=== PATIENT | male | born 1985 | race Caucasian/White ===

== ENCOUNTER 2018-03-30 22:05 | Inpatient (IN) | payer SELFPAY ==
[~2018-03-30] VITALS: Ht 182.9 cm; Wt 95.0 kg
[2018-03-30 22:14] VITALS: BP 169/64; PULSE 74; RESP 16; TEMP 98.2; O2SAT 99
[2018-03-30] MEDS ORDERED: SODIUM CHLOR 0.9% 1000 ML INJ 1,000 ML IV ONE (22:15)
[2018-03-30] MEDS ORDERED: ceFAZolin 2 GM PREMIX 50 ML IV ONE (22:15)
[2018-03-30] MEDS ORDERED: DIPHTH/TETANUS/ACEL PERTUSSIS (BOOSTER) 0.5 ML VIAL/PFS IM ONE (22:15)
[2018-03-30] MEDS ORDERED: LORazepam 2 MG/ML VIAL IV PUSH ONE (22:30)
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
--- NOTE | 2018-03-30 23:04 | RADRPT ---
EXAM DATE: 03/30/2018 10:56 PM EDT AGE/SEX: 32 years / Male INDICATIONS: Short of breath. CLINICAL DATA: This is the patient's initial encounter. Patient reports that signs and symptoms have been present for 1 day and indicates a pain score of Nonresponsive. MEDICAL/SURGICAL HISTORY: Non-responsive. Non-responsive. COMPARISON: No prior exams available for comparison. FINDINGS: A single AP view of the chest demonstrates the lungs to be symmetrically aerated without evidence of mass, infiltrate or effusion. The cardiomediastinal contours are unremarkable. Osseous structures a re intact. CONCLUSION: No acute cardiopulmonary process. Electronically signed by: Enrique Petersen MD 03/30/2018 11:03 PM EDT
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
[2018-03-30 23:21] LABS: AUTOMATED NEUTROPHIL # 24.6 TH/MM3 (1.8-7.7); BASOPHIL # 0.1 TH/MM3 (0-0.2); BASOPHIL % 0.4 % (0.0-2.0); HEMATOCRIT 51.7 % (39.0-51.0); HEMOGLOBIN 17.3 GM/DL (13.0-17.0); LYMPH % 2.7 % (9.0-44.0); LYMPHOCYTE # 0.7 TH/MM3 (1.0-4.8); MEAN CELL VOLUME 96.4 FL (80.0-100.0); MEAN CORPUSCULAR HEMOGLOBIN 32.3 PG (27.0-34.0); MEAN CORPUSCULAR HGB CONC 33.5 % (32.0-36.0); MEAN PLATELET VOLUME 10.1 FL (7.0-11.0); MONO % 2.5 % (0.0-8.0); MONOCYTE # 0.6 TH/MM3 (0-0.9); NEUT % 94.4 % (16.0-70.0); PLATELET COUNT 390 TH/MM3 (150-450); RED BLOOD COUNT 5.36 MIL/MM3 (4.50-5.90); RED CELL DISTRIBUTION WIDTH 13.1 % (11.6-17.2)
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
[2018-03-30 23:30] LABS: PROTHROMBIN TIME - PATIENT 10.4 SEC (9.8-11.6)
[2018-03-30] MEDS ORDERED: PROPOFOL 200 MG/20 ML AMP IV ONE (23:30)
[2018-03-31] VITALS (8 sets, daily range): BP systolic 118–145; BP diastolic 64–83; PULSE 64–86; RESP 14–22; TEMP 97.7–98.4; O2SAT 94–100
[2018-03-31] MEDS ORDERED: MIDAZOLAM HCL 5 MG/ML VIAL (1 ML) ONE (00:25)
[2018-03-31 01:28] LABS: ALKALINE PHOSPHATASE 89 U/L (45-117); ALT (GPT) 27 U/L (12-78); TOTAL BILIRUBIN ADULT 0.6 MG/DL (0.2-1.0); TOTAL PROTEIN 7.4 GM/DL (6.4-8.2); TROPONIN I LESS THAN 0.02 NG/ML (0.02-0.05)
[2018-03-31 01:43] LABS: ALBUMIN 4.1 GM/DL (3.4-5.0); AST (GOT) 16 U/L (15-37); BICARBONATE 23.2 MEQ/L (21.0-32.0); BLOOD UREA NITROGEN 14 MG/DL (7-18); CALCIUM 8.6 MG/DL (8.5-10.1); CHLORIDE 108 MEQ/L (98-107); CREATININE 1.13 MG/DL (0.60-1.30); GLOMERULAR FILTRATION RATE 75 ML/MIN (>89); GLUCOSE,RANDOM 120 MG/DL (74-106); MAGNESIUM 2.3 MG/DL (1.5-2.5); SODIUM (NA) 142 MEQ/L (136-145)
[2018-03-31 01:44] LABS: ACETAMINOPHEN LESS THAN 2.0 MCG/ML (10.0-30.0)
[2018-03-31] MEDS ORDERED: SODIUM CHLOR 0.9% 1000 ML INJ 1,000 ML IV SCH (02:15)
[2018-03-31] MEDS ORDERED: MIDAZOLAM HCL 5 MG/5 ML VIAL IV PUSH ONE (02:15)
[2018-03-31] MEDS ORDERED: PROPOFOL 200 MG/20 ML AMP IV ONE ×2 (02:15→12:00)
[2018-03-31] MEDS ORDERED: NALOXONE HCL 0.4 MG/ML AMP IV PUSH PRN (03:00)
[2018-03-31] MEDS ORDERED: SODIUM CHLORIDE 0.9% FLUSH 10 ML FLUSH IV FLUSH PRN (03:00)
[2018-03-31] MEDS ORDERED: LACTULOSE SYRUP 20 GM/30 ML CUP PO PRN (03:00)
[2018-03-31] MEDS ORDERED: MAGNESIUM HYDROXIDE SUSP 30 ML CUP PO PRN (03:00)
[2018-03-31] MEDS ORDERED: ACETAMINOPHEN 325 MG TAB PO PRN (03:00)
[2018-03-31] MEDS ORDERED: SENNOSIDES 8.6 MG TAB PO PRN (03:00)
[2018-03-31] MEDS ORDERED: ONDANSETRON ODT 4 MG TAB PO PRN (03:00)
[2018-03-31] MEDS ORDERED: MORPHINE SULFATE 4 MG/ML INJ IV PUSH PRN (03:00)
[2018-03-31] MEDS ORDERED: BISACODYL 10 MG SUPP RECTAL PRN (03:00)
[2018-03-31] MEDS: SODIUM CHLOR 0.9% 1000 ML INJ 1,000 ML IV SCH ×3 (03:03→20:42)
[2018-03-31 05:35] LABS: BILIRUBIN, URINE NEG (NEG); BLOOD, URINE SMALL (NEG); GLUCOSE,URINE NEG (NEG); HYALINE CAST, URINE 13 /lpf (RARE); KETONE, URINE NEG (NEG); MUCUS URINE MOD /lpf (OCC); NITRITE,URINE NEG (NEG); SQUAMOUS EPITHELIAL CELL URINE 6 /hpf (0-5); URINE COLOR YELLOW (YELLW/STRAW); URINE LEUKOCYTE ESTERASE LARGE (NEG)
[2018-03-31] MEDS ORDERED: CHLORHEXIDINE GLUCONATE 0.12% 15 ML CUP ONE (08:26)
[2018-03-31] MEDS: SODIUM CHLORIDE 0.9% FLUSH 10 ML FLUSH IV FLUSH SCH ×2 (08:31→20:42)
[2018-03-31] MEDS: DOCUSATE SODIUM 50 MG/SENNA 8.6 MG TAB PO SCH ×2 (08:31→20:42)
[2018-03-31] MEDS ORDERED: ACETAMINOPHEN 1000 MG/100 ML 100 ML IV ONE (08:35)
--- NOTE | 2018-03-31 08:44 | HHI.HP ---
HPI Service [facility] Hospitalists Primary Care Physician No Primary Care Physician Admission Diagnosis AMS, Facial trauma with jaw dislocation Diagnoses: Chief Complaint: unable to close his mouth Travel History International Travel<30 Days: No Contact w/Intl Traveler <30 Da: No Traveled to Known Affected Are: No History of Present Illness The patient is a 32 year old male who presents to the [facility] emergency department with a history of altered mentation noted by his family prior to his arrival in the emergency department. According to ambulance services, the patient was last seen normal by his family asked the patient arrived in the area yesterday to visit his family. The patient's family reported to ambulance services that they heard loud noises, banging, moaning in the room that the patient was staying in. They then heard a loud thump that sounded like the patient fell to the floor, they then went to check on him. Patient was noted to be on the ground. The patient was noted to be altered. The patient was brought in by ambulance services for evaluation and treatment. The patient reportedly has a history of using marrow being aware of him using any other drugs. They report that he has no past medical history and no known drug allergies. He does not take any prescribed medications. The patient himself is unable to provide any significant history. He is following commands and will state his name, however he has visible jaw deformity and inability to close his mouth, therefore history from the patient is limited. The patient denies having any pain at this time, except with palpating the jaw. On the patient's mother's arrival the patient's mother was able to provide additional history. She reports that the patient was with her fianc throughout the day. He had reported not feeling well and having nausea and vomiting. When she returned home from work she noticed that he had bruising underneath bilateral eyes. She asked him what happened and he could not recall. She reports that he took ibuprofen and then went to bed. When she went to check on him again he was able to be awakened, however he rolled off of an air mattress on the floor and then began to have what looked like generalized tonic-clonic seizure activity. She reports ambulance services were then called. She reports that he did have one seizure in daycare at 3 years of age. She denies him having any other seizures since then. The patient says he does not recall any event. Review of Systems Except as stated in HPI: all other systems reviewed are Neg Past Family Social History Past Medical History History of jaw dislocation in the past. Past Surgical History None Reported Medications Last Impressions Pelvis X-Ray 03/30/182214 Signed Impressions: CONCLUSION: Negative AP pelvis x-ray. Maxillofacial CT 03/30/182214 Signed Impressions: CONCLUSION: 1. No bony fracture is seen. 2. Right periorbital and frontal scalp swelling. 3. The mouth is open with the mandibular condyles anteriorly translocated. Head CT 03/30/182214 Signed Impressions: CONCLUSION: 1. No acute intracranial abnormality. 2. Right frontal scalp and periorbital soft tissue swelling. Chest X-Ray 03/30/182214 Signed Impressions: CONCLUSION: No acute cardiopulmonary process. Cervical Spine CT 03/30/182214 Signed Impressions: CONCLUSION: No acute cervical spine abnormality is identified. Allergies: Coded Allergies: No Known Allergies (Unverified , 03/30/18) Family History Parents are healthy Social History Alcohol Use: No Tobacco Use: Yes (One half pack per day) Substance Use: Yes (Marijuana) Physical Exam Vital Signs Vital Signs Date Time Temp Pulse Resp B/P (MAP) Pulse Ox O2 Delivery O2 Flow Rate FiO2 03/31/18 07:15 97.8 84 16 118/83 (95) 98 Room Air 03/31/18 07:15 83 18 98 Room Air 03/31/18 03:47 84 14 142/78 (99) 95 Room Air 03/31/18 01:05 86 16 145/67 (93) 100 Nasal Cannula 2.00 03/31/18 00:04 80 16 124/64 (84) 100 Room Air 03/30/18 22:18 Room Air 03/30/18 22:14 98.2 74 16 169/64 (99) 99 Physical Exam GENERAL: This is a well-nourished, well-developed patient, in no apparent distress. SKIN: Right eye with ecchymoses. Cool and dry. HEAD: Right eye ecchymoses. Normocephalic. No temporal or scalp tenderness. EYES: Pupils equal round and reactive. Extraocular motions intact. No scleral icterus. No injection or drainage. ENT: Nose without bleeding, purulent drainage or septal hematoma. Throat without erythema, tonsillar hypertrophy or exudate. Uvula midline. Airway patent. NECK: Trachea midline. No JVD or lymphadenopathy. Supple, nontender, no meningeal signs. CARDIOVASCULAR: Regular rate and rhythm without murmurs, gallops, or rubs. RESPIRATORY: Clear to auscultation. Breath sounds equal bilaterally. No wheezes , rales, or rhonchi. GASTROINTESTINAL: Abdomen soft, non-tender, nondistended. No hepato-splenomegaly , or palpable masses. No guarding. MUSCULOSKELETAL: Extremities without clubbing, cyanosis, or edema. No joint tenderness, effusion, or edema noted. No calf tenderness. Negative Homans sign bilaterally. NEUROLOGICAL: Awake and alert. Cranial nerves II through XII intact. Motor and sensory grossly within normal limits. Five out of 5 muscle strength in all muscle groups. Normal speech. Laboratory Laboratory Tests Test 03/30/18 22:30 03/30/18 23:35 03/31/18 05:20 White Blood Count 26.0 Red Blood Count 5.36 Hemoglobin 17.3 Hematocrit 51.7 Mean Corpuscular Volume 96.4 Mean Corpuscular Hemoglobin 32.3 Mean Corpuscular Hemoglobin Concent 33.5 Red Cell Distribution Width 13.1 Platelet Count 390 Mean Platelet Volume 10.1 Neutrophils (%) (Auto) 94.4 Lymphocytes (%) (Auto) 2.7 Monocytes (%) (Auto) 2.5 Eosinophils (%) (Auto) 0.0 Basophils (%) (Auto) 0.4 Neutrophils # (Auto) 24.6 Lymphocytes # (Auto) 0.7 Monocytes # (Auto) 0.6 Eosinophils # (Auto) 0.0 Basophils # (Auto) 0.1 CBC Comment DIFF FINAL Differential Comment Prothrombin Time 10.4 Prothromb Time International Ratio 1.0 Activated Partial Thromboplast Time 21.7 Salicylates Level LESS THAN 1.7 Blood Urea Nitrogen 14 Creatinine 1.13 Random Glucose 120 Total Protein 7.4 Albumin 4.1 Calcium Level 8.6 Magnesium Level 2.3 Alkaline Phosphatase 89 Aspartate Amino Transf (AST/SGOT) 16 Alanine Aminotransferase (ALT/SGPT) 27 Total Bilirubin 0.6 Sodium Level 142 Potassium Level 4.4 Chloride Level 108 Carbon Dioxide Level 23.2 Anion Gap 11 Estimat Glomerular Filtration Rate 75 Total Creatine Kinase 125 Creatine Kinase MB 2.1 Troponin I LESS THAN 0.02 Lipase 43 Acetaminophen Level LESS THAN 2.0 Ethyl Alcohol Level LESS THAN 3 Urine Color YELLOW Urine Turbidity TURBID Urine pH 5.0 Urine Specific [place] 1.018 Urine Protein 30 Urine Glucose (UA) NEG Urine Ketones NEG Urine Occult Blood SMALL Urine Nitrite NEG Urine Bilirubin NEG Urine Urobilinogen LESS THAN 2 Urine Leukocyte Esterase LARGE Urine RBC 3 Urine WBC 55 Urine Squamous Epithelial Cells 6 Urine Hyaline Casts 13 Urine Mucus MOD Microscopic Urinalysis Comment CULTURE INDICATED Urine Opiates Screen NEG Urine Barbiturates Screen NEG Urine Amphetamines Screen NEG Urine Benzodiazepines Screen POS Urine Cocaine Screen NEG Urine Cannabinoids Screen POS Date/Time Source Procedure Growth Status 03/31/18 05:20 Urine Random Urine Urine Culture Pending Received Result Diagram: 03/30/18222903/30/182334 Imaging Last Impressions Pelvis X-Ray 03/30/182214 Signed Impressions: CONCLUSION: Negative AP pelvis x-ray. Maxillofacial CT 03/30/182214 Signed Impressions: CONCLUSION: 1. No bony fracture is seen. 2. Right periorbital and frontal scalp swelling. 3. The mouth is open with the mandibular condyles anteriorly translocated. Head CT 03/30/182214 Signed Impressions: CONCLUSION: 1. No acute intracranial abnormality. 2. Right frontal scalp and periorbital soft tissue swelling. Chest X-Ray 03/30/182214 Signed Impressions: CONCLUSION: No acute cardiopulmonary process. Cervical Spine CT 03/30/182214 Signed Impressions: CONCLUSION: No acute cervical spine abnormality is identified. Caprini VTE Risk Assessment Caprini VTE Risk Assessment: Mod/High Risk (score >= 2) Caprini Risk Assessment Model Point Value = 1 Point Value = 2 Point Value = 3 Point Value = 5 Age 41-60 Minor surgery BMI > 25 kg/m2 Swollen legs Varicose veins or History of unexplained or recurrent spontaneous Oral contraceptives or hormone replacement Sepsis (< 1 month) Serious lung disease, including pneumonia (< 1 month) Abnormal pulmonary function Acute myocardial infarction Congestive heart failure (< 1 month) History of inflammatory bowel disease Medical patient at bed rest Age 61-74 Arthroscopic surgery Major open surgery (> 45 min) Laparoscopic surgery (> 45 min) Malignancy Confined to bed (> 72 hours) Immobilizing plaster cast Central venous access Age >= 75 History of VTE Family history of VTE Factor V Leiden Prothrombin [id number] Lupus anticoagulant Anticardiolipin antibodies Elevated serum homocysteine Heparin-induced thrombocytopenia Other congenital or acquired thrombophilia Stroke (< 1 month) Elective arthroplasty Hip, pelvis, or leg fracture Acute spinal cord injury (< 1 month) Prophylaxis Regimen Total Risk Factor Score Risk Level Prophylaxis Regimen 0-1 Low Early ambulation 2 Moderate Order ONE of the following: *Sequential Compression Device (SCD) *Heparin 5000 units SQ BID 3-4 Higher Order ONE of the following medications: *Heparin 5000 units SQ TID *Enoxaparin/Lovenox 40 mg SQ daily (WT < 150 kg, CrCl > 30 mL/min) *Enoxaparin/Lovenox 30 mg SQ daily (WT < 150 kg, CrCl > 10-29 mL/min) *Enoxaparin/Lovenox 30 mg SQ BID (WT < 150 kg, CrCl > 30 mL/min) AND/OR *Sequential Compression Device (SCD) 5 or more Highest Order ONE of the following medications: *Heparin 5000 units SQ TID (Preferred with Epidurals) *Enoxaparin/Lovenox 40 mg SQ daily (WT < 150 kg, CrCl > 30 mL/min) *Enoxaparin/Lovenox 30 mg SQ daily (WT < 150 kg, CrCl > 10-29 mL/min) *Enoxaparin/Lovenox 30 mg SQ BID (WT < 150 kg, CrCl > 30 mL/min) AND *Sequential Compression Device (SCD) Assessment and Plan Problem List: (1) Dislocation of jaw, bilateral, initial encounter ICD Code: S03.03XA - Dislocation of jaw, bilateral, initial encounter Assessment and Plan 32-year-old male who presented to the emergency room with altered mental status. Bilateral mandibular dislocation Status post TMJ reduction by Dr. Storey Full liquid diet Clear by surgeon for discharge to follow-up with plastic surgery in 2 weeks Acute encephalopathy on admission. Resolved. Poss postictal?? Poss related to marijuana use Marijuana use. Counselled. Questionable seizure. Patient has a h/o one time seizure as a child Check EEG Leukocytosis, no signs of infection poss reactive stress related. Monitor for signs of infection On IVF Repeat CBC tomorrow DVT ppx: scd/teds, ambulation Discussed Condition With patient, nurse Physician Certification 2 Midnight Certification Type: Admission for Inpatient Services Order for Inpatient Services The services are ordered in accordance with Medicare regulations or non- Medicare payer requirements, as applicable. In the case of services not specified as inpatient-only, they are appropriately provided as inpatient services in accordance with the 2-midnight benchmark. Estimated LOS (days): 2 days is the estimated time the patient will need to remain in the hospital, assuming treatment plan goals are met and no additional complications. Post-Hospital Plan: Home Savanah Love MD Mar 31, 2018 08:44
--- NOTE | 2018-03-31 09:06 | PD.CONS ---
History of Present Illness Service Plastic surgery Consult Requested By Emergency department Reason for Consult Patient unable to close his mandible Primary Care Physician No Primary Care Physician Diagnoses: (1) Dislocation of jaw, bilateral, initial encounter History of Present Illness The patient is a 32 year old male who presents to the [facility] emergency department with a history of altered mentation noted by his family prior to his arrival in the emergency department. According to ambulance services, the patient was last seen normal by his family asked the patient arrived in the area yesterday to visit his family. The patient's family reported to ambulance services that they heard loud noises, banging, moaning in the room that the patient was staying in. They then heard a loud thump that sounded like the patient fell to the floor, they then went to check on him. Patient was noted to be on the ground. The patient was noted to be altered. The patient was brought in by ambulance services for evaluation and treatment. They report that he has no past medical history and no known drug allergies. He does not take any prescribed medications. The patient himself is unable to provide any significant history. He is following commands and will state his name, however he has visible jaw deformity and inability to close his mouth, therefore history from the patient is limited. The patient denies having any pain at this time, except with palpating the jaw. On the patient's mother's arrival the patient's mother was able to provide additional history. She reports that the patient was with her fianc throughout the day. He had reported not feeling well and having nausea and vomiting. When she returned home from work she noticed that he had bruising underneath bilateral eyes. She asked him what happened and he could not recall. She reports that he took ibuprofen and then went to bed. When she went to check on him again he was able to be awakened, however he rolled off of an air mattress on the floor and then began to have what looked like generalized tonic-clonic seizure activity. She reports ambulance services were then called. She reports that he did have one seizure in daycare at 3 years of age. She denies him having any other seizures since then. [facility] Past Medical History Narrative Medical The patient's past medical history is reportedly significant for one-time seizure in his childhood, history of jaw dislocation in the past. Past Surgical History Surgical History: Unable to Obtain Social History Alcohol Use: No Tobacco Use: Yes (One half pack per day) Substance Use: Yes (Marijuana) Allergies-Medications (Allergen,Severity, Reaction): Coded Allergies: No Known Allergies (Unverified , 03/30/18) Review of Systems ROS Limitations: Altered Mental Status, Poor Historian HENT: Positive: Dental Difficulties Neurologic: Positive: Change in Mentation Past Family Social History Allergies: Coded Allergies: No Known Allergies (Unverified , 03/30/18) Physical Exam Vital Signs Vital Signs Date Time Temp Pulse Resp B/P (MAP) Pulse Ox O2 Delivery O2 Flow Rate FiO2 03/31/18 08:48 97.8 81 16 120/78 (92) 99 03/31/18 07:15 97.8 84 16 118/83 (95) 98 Room Air 03/31/18 07:15 83 18 98 Room Air 03/31/18 03:47 84 14 142/78 (99) 95 Room Air 03/31/18 01:05 86 16 145/67 (93) 100 Nasal Cannula 2.00 03/31/18 00:04 80 16 124/64 (84) 100 Room Air 03/30/18 22:18 Room Air 03/30/18 22:14 98.2 74 16 169/64 (99) 99 Physical Exam GENERAL: This is a well-nourished, well-developed patient, in no apparent distress. SKIN: No rashes, ecchymoses or lesions. Cool and dry. HEAD: Atraumatic. Normocephalic. No temporal or scalp tenderness. EYES: Pupils equal round and reactive. Extraocular motions intact. No scleral icterus. No injection or drainage. ENT: Nose without bleeding, purulent drainage or septal hematoma. Throat without erythema, tonsillar hypertrophy or exudate. Uvula midline. Airway patent. NECK: Trachea midline. No JVD or lymphadenopathy. Supple, nontender, no meningeal signs. CARDIOVASCULAR: Regular rate and rhythm without murmurs, gallops, or rubs. RESPIRATORY: Clear to auscultation. Breath sounds equal bilaterally. No wheezes , rales, or rhonchi. GASTROINTESTINAL: Abdomen soft, non-tender, nondistended. No hepato-splenomegaly , or palpable masses. No guarding. MUSCULOSKELETAL: Extremities without clubbing, cyanosis, or edema. No joint tenderness, effusion, or edema noted. No calf tenderness. Negative Homans sign bilaterally. NEUROLOGICAL: Awake and alert. Cranial nerves II through XII intact. Motor and sensory grossly within normal limits. Five out of 5 muscle strength in all muscle groups. Normal speech. Laboratory Laboratory Tests Test 03/30/18 22:30 03/30/18 23:35 03/31/18 05:20 White Blood Count 26.0 Red Blood Count 5.36 Hemoglobin 17.3 Hematocrit 51.7 Mean Corpuscular Volume 96.4 Mean Corpuscular Hemoglobin 32.3 Mean Corpuscular Hemoglobin Concent 33.5 Red Cell Distribution Width 13.1 Platelet Count 390 Mean Platelet Volume 10.1 Neutrophils (%) (Auto) 94.4 Lymphocytes (%) (Auto) 2.7 Monocytes (%) (Auto) 2.5 Eosinophils (%) (Auto) 0.0 Basophils (%) (Auto) 0.4 Neutrophils # (Auto) 24.6 Lymphocytes # (Auto) 0.7 Monocytes # (Auto) 0.6 Eosinophils # (Auto) 0.0 Basophils # (Auto) 0.1 CBC Comment DIFF FINAL Differential Comment Prothrombin Time 10.4 Prothromb Time International Ratio 1.0 Activated Partial Thromboplast Time 21.7 Salicylates Level LESS THAN 1.7 Blood Urea Nitrogen 14 Creatinine 1.13 Random Glucose 120 Total Protein 7.4 Albumin 4.1 Calcium Level 8.6 Magnesium Level 2.3 Alkaline Phosphatase 89 Aspartate Amino Transf (AST/SGOT) 16 Alanine Aminotransferase (ALT/SGPT) 27 Total Bilirubin 0.6 Sodium Level 142 Potassium Level 4.4 Chloride Level 108 Carbon Dioxide Level 23.2 Anion Gap 11 Estimat Glomerular Filtration Rate 75 Total Creatine Kinase 125 Creatine Kinase MB 2.1 Troponin I LESS THAN 0.02 Lipase 43 Acetaminophen Level LESS THAN 2.0 Ethyl Alcohol Level LESS THAN 3 Urine Color YELLOW Urine Turbidity TURBID Urine pH 5.0 Urine Specific [place] 1.018 Urine Protein 30 Urine Glucose (UA) NEG Urine Ketones NEG Urine Occult Blood SMALL Urine Nitrite NEG Urine Bilirubin NEG Urine Urobilinogen LESS THAN 2 Urine Leukocyte Esterase LARGE Urine RBC 3 Urine WBC 55 Urine Squamous Epithelial Cells 6 Urine Hyaline Casts 13 Urine Mucus MOD Microscopic Urinalysis Comment CULTURE INDICATED Urine Opiates Screen NEG Urine Barbiturates Screen NEG Urine Amphetamines Screen NEG Urine Benzodiazepines Screen POS Urine Cocaine Screen NEG Urine Cannabinoids Screen POS Date/Time Source Procedure Growth Status 03/31/18 05:20 Urine Random Urine Urine Culture Pending Received Result Diagram: 03/30/18 2230 03/30/18 [id number] Jay Storey MD Mar 31, 2018 09:06
[2018-03-31] MEDS ORDERED: BUPIVACAINE/EPINEPHRINE 0.25% 50 ML VIAL ONE (09:07)
[2018-03-31] MEDS ORDERED: LIDOCAINE 1%/EPINEPHrine 1:100,000 SOLN 20 ML VIAL ONE (09:42)
[2018-03-31] MEDS ORDERED: DO NOT ADM ANY ANTICOAGULANT DRUGS PRN (10:40)
[2018-03-31] MEDS ORDERED: MIDAZOLAM HCL 2 MG/2 ML VIAL ONE (10:42)
[2018-03-31] MEDS ORDERED: LIDOCAINE HCL 1% PF 5 ML SYRINGE OTHER ONE (12:00)
[2018-03-31] MEDS ORDERED: SUCCINYLCHOLINE CHLORIDE 100 MG/5 ML SYRINGE IV PUSH ONE (12:00)
[2018-03-31] MEDS ORDERED: ROCURONIUM INJ 50 MG/5 ML SYRINGE IV PUSH ONE (12:00)
--- NOTE | 2018-03-31 13:33 | HHI.DCPOC ---
Discharge Care Plan Goals to Promote Your Health * To prevent worsening of your condition and complications * To maintain your health at the optimal level Directions to Meet Your Goals Take your medications as prescribed Follow your dietary instruction Follow activity as directed Keep your appointments as scheduled Take your immunizations and boosters as scheduled If your symptoms worsen call your PCP, if no PCP go to Urgent Care Center or Emergency Room Smoking is Dangerous to Your Health. Avoid second hand smoke Call the 24-hour hour crisis hotline for domestic abuse at Savanah Love MD Mar 31, 2018 13:33
--- NOTE | 2018-03-31 13:42 | EKG ---
Date Performed: 03/30/2018 Time Performed: 22:08:19 PTAGE: 32 years EKG: Baseline artifact present Sinus rhythm WITH MARKED SINUS ARRHYTHMIA. INTRAVENTRICULAR CONDUCTION DELAY BORDERLINE ECG NO PREVIOUS TRACING DOCTOR: Jens Bran Interpretating Date/Time 03/31/2018 13:40:59
--- NOTE | 2018-03-31 17:54 | PD.OP ---
Operative Report Date of Surgery: Mar 31, 2018 Preoperative Diagnosis: (1) Dislocation of jaw, bilateral, initial encounter Postoperative Diagnosis: (1) Dislocation of jaw, bilateral, initial encounter Procedure: Closed reduction of bilateral temporomandibular joint dislocation (12986) Surgeon: Jay Gomez Thermo Cementing Folder Operator(s): . Operation and Findings: 32-year-old male who presented with bilateral temporomandibular joint dislocation following a suspected seizure. Per the emergency department attending, 2 attempts were made at closed reduction under conscious sedation, by 2 different emergency department physicians. Risks benefits alternative treatments were discussed. All questions were answered and the patient expressed understanding. Patient elected to assume the risks of reduction of the above dislocations. Informed consent was obtained. The patient was taken to the operating room. All pressure points were padded. A surgical timeout was performed. After the smooth induction of IV anesthesia, manual pressure was placed over the anterior mandibular rami bilaterally. After a prolonged period of continued force, the right, and then the left temporomandibular joints were reduced. The patient was immediately able to be brought easily into occlusion. All needle sponge and instrument counts were correct 2. The patient was awoken from anesthesia and arrived stable and doing well to the PACU. Jay Gomez MD Mar 31, 2018 17:54
[2018-03-31] MEDS ORDERED: LORazepam 2 MG/ML VIAL IV PUSH PRN (20:00)
[2018-04-01] VITALS (7 sets, daily range): BP systolic 116–139; BP diastolic 60–75; PULSE 57–93; RESP 16–18; TEMP 97.8–99.3; O2SAT 98–100
[2018-04-01] MEDS: SODIUM CHLOR 0.9% 1000 ML INJ 1,000 ML IV SCH ×3 (05:07→17:08)
[2018-04-01] MEDS: DOCUSATE SODIUM 50 MG/SENNA 8.6 MG TAB PO SCH (08:02)
[2018-04-01] MEDS: SODIUM CHLORIDE 0.9% FLUSH 10 ML FLUSH IV FLUSH SCH (08:02)
--- NOTE | 2018-04-01 09:57 | HHI.PR ---
Subjective Remarks Patient swears that he does not believe that this episode is related to his marijuana use as he has been using marijuana all his life. He has not had this type of episode previously. He states that he is tolerating his diet. He reports his pain is currently controlled Objective Vitals Vital Signs Date Time Temp Pulse Resp B/P (MAP) Pulse Ox O2 Delivery O2 Flow Rate FiO2 04/01/18 08:00 98.0 57 18 139/64 (89) 99 04/01/18 04:00 93 04/01/18 03:00 97.8 70 18 117/75 (89) 99 04/01/18 03:00 98.2 86 16 126/60 (82) 99 04/01/18 00:00 65 03/31/18 20:00 64 03/31/18 20:00 97.9 65 16 121/75 (90) 98 03/31/18 16:36 98.4 79 19 128/72 (90) 97 03/31/18 15:30 67 16 119/79 (92) 100 Room Air 03/31/18 14:30 66 16 128/71 (90) 98 Room Air 03/31/18 13:30 70 16 110/63 (79) 98 Room Air 03/31/18 12:30 75 16 119/64 (82) 98 Room Air 03/31/18 11:30 76 16 125/80 (95) 99 Room Air 03/31/18 11:15 86 16 116/58 (77) 97 Room Air 03/31/18 11:00 83 16 132/61 (84) 96 Room Air 03/31/18 10:45 88 16 130/67 (88) 97 Room Air 03/31/18 10:36 97.6 96 16 135/90 (105) 99 Room Air I/O 03/31/18 03/31/18 03/31/18 04/01/18 04/01/18 04/01/18 07:00 15:00 23:00 07:00 15:00 23:00 Intake Total 1163 ml Balance 1163 ml Intake IV Total 1163 ml # Voids 1 1 # Bowel Movements 0 Result Diagram: 03/30/18222903/30/18 8215 Objective Remarks GENERAL: This is a well-nourished, well-developed patient, in no apparent distress. CARDIOVASCULAR: Regular rate and rhythm RESPIRATORY: Clear to auscultation. Breath sounds equal bilaterally. No wheezes , rales, or rhonchi. MUSCULOSKELETAL: Extremities without clubbing, cyanosis, or edema. NEURO: Alert & Oriented x4 to person, place, time, situation. Moves all ext x4 A/P Problem List: (1) Dislocation of jaw, bilateral, initial encounter ICD Code: S03.03XA - Dislocation of jaw, bilateral, initial encounter Assessment and Plan 32-year-old male who presented to the emergency room with altered mental status. Bilateral mandibular dislocation Status post TMJ reduction by Dr. Storey Full liquid diet Clear by surgeon for discharge to follow-up with plastic surgery in 2 weeks Acute toxic encephalopathy on admission. Resolved. Poss postictal?? Poss related to marijuana use Marijuana use. Counselled. Questionable seizure. Patient has a h/o one time seizure as a child Check EEG, start Keppra until further workup completed. We will obtain a neurology consultation Leukocytosis, no signs of infection poss reactive stress related. Monitor for signs of infection On IVF Repeat CBC tomorrow DVT prophylaxis: scd/teds, ambulation Discharge Planning Possibly home in the morning after completion EEG and neurology evaluation Elma Sims MD Apr 01, 2018 09:57
--- NOTE | 2018-04-01 11:09 | MB ---
cc: Pauline Landeros MD DATE: 04/01/2018 REASON FOR CONSULTATION: Seizure. HISTORY OF PRESENT ILLNESS: This is a 31-year-old man who came in to [facility] with altered mental status prior to arrival. Apparently, the patient was last seen normal by family. They apparently heard a loud noise, banging and moaning in the room where he was staying and a thump. He fell to the floor. They found him on the ground altered. He was brought in by EMS. The patient cannot tell me what happened. He has no recollection of feeling strange. He does not remember the ambulance ride. He states he woke up here in the ED at some point in time. He was found to have jaw dislocation, which had to be reset. He states he gets 5-6 hours of sleep normally for many years. It is nothing new. He denies any head trauma or seizures. He denies binge drinking. He denies benzodiazepine use. He admits to marijuana. Denies any other drugs. Denies a history of seizures. Per chart, it states that he may have had one when he was 3 years old, but that is per chart note. PAST MEDICAL HISTORY: Jaw dislocation also in the past per chart, reason unknown. ALLERGIES: NONE REPORTED. FAMILY HISTORY: Noncontributory. SOCIAL HISTORY: Apparently uses marijuana. Denies alcohol. Admits to smoking. Denies any other illicit substances. PHYSICAL EXAMINATION: VITAL SIGNS: His temperature is 98, pulse 57, respiratory rate 18, blood pressure 139/64, saturating at 99% on room air. NECK: Supple. HEART: Regular. NEUROLOGIC: He is awake, alert, and fluent. He does have ecchymosis over the right eye. MOTOR EXAMINATION: Speech is normal. Tongue, there is no laceration. Motor blake, no drift, no leg lag. Cerebellar is normal. Toes downgoing. DTRs are 1+. Sensory is normal. Gait is withheld at this time. LABORATORY STUDIES: His white count is 26, hemoglobin 17.3, hematocrit 51.7, platelets are 390,000. Coag panel. PTT 21.7. Chemistry GFR 75, glucose 120. Tox screen was positive for benzodiazepines and that may have been given here in the ED, not sure. Cannabinoids were positive as well. Urine small occult blood, large leukocyte esterase, 55 white cells. Culture is still pending on urine. IMAGING: CT spine, no fracture or abnormality. Chest x-ray: No cardiopulmonary disease. CT brain right frontal scalp periorbital soft tissue swelling, but nothing acute. Maxillofacial CT reviewed, no fractures. Pelvis negative. IMPRESSION: Probable seizure, new onset etiology really difficult to say at this point in time. EEG was just completed. We will get the report. He is on Keppra 500 q. 12 hours. I would continue with that since the apparent seizure was significant enough to cause jaw dislocation. I am going to also add an MRI of the brain to make sure there is not any abnormality that is not observed on CT; however, he is advised to stop any illicit substances mentioned or not mentioned to the examining physicians. No driving in the [facility] for 6 months. Needs to followup with Neurology as an outpatient. Needs to followup with the primary care. Avoid any type of energy drinks, adequate sleep is encouraged. Maintain seizure precautions, maintain telemetry. He may benefit from an event monitor in the event that this may have been a dysrhythmia, but less likely. Continue current care. Hopefully, discharge planning in the next 24 hours if stable. Pauline Landeros MD DF/DL , 10:48 AM , 11:08 AM
[2018-04-01 11:11] LABS: BASOPHIL % 0.3 % (0.0-2.0); EOSINOPHIL # 0.1 TH/MM3 (0-0.4); EOSINOPHIL % 0.6 % (0.0-4.0); HEMATOCRIT 45.1 % (39.0-51.0); HEMOGLOBIN 15.4 GM/DL (13.0-17.0); LYMPH % 18.8 % (9.0-44.0); LYMPHOCYTE # 2.1 TH/MM3 (1.0-4.8); MEAN CELL VOLUME 96.7 FL (80.0-100.0); MEAN CORPUSCULAR HGB CONC 34.1 % (32.0-36.0); MEAN PLATELET VOLUME 9.3 FL (7.0-11.0); MONO % 8.7 % (0.0-8.0); NEUT % 71.6 % (16.0-70.0); PLATELET COUNT 185 TH/MM3 (150-450); RED BLOOD COUNT 4.67 MIL/MM3 (4.50-5.90); RED CELL DISTRIBUTION WIDTH 12.5 % (11.6-17.2); WHITE BLOOD COUNT 11.2 TH/MM3 (4.0-11.0)
[2018-04-01 11:21] LABS: CREATININE 0.88 MG/DL (0.60-1.30)
--- NOTE | 2018-04-01 17:59 | MG ---
cc: Narayan Lr MD TEST NUMBER: [id number] INDICATION: A 32-year-old, generalized tonic-clonic seizure, marijuana, benzos, history of seizure. MEDICATIONS: None. DESCRIPTION: Symmetric 8 Hz, 60 microvolt rhythm is seen. Some slowing down to 7 Hz is at times seen, diffusely. No hemisphere asymmetry is noted. No epileptiform or seizure activity is noted. Photic stimulation is performed without significant posterior driving. Hyperventilation was performed without change in the background. IMPRESSION: Generally normal electroencephalogram. Some mild slowing was seen at times, but no focal abnormality was noted and no seizure activity was seen. MD ROBBY Montgomery/TED , 05:49 PM , 05:58 PM
[2018-04-01] MEDS ORDERED: levETIRAcetam 500 MG TAB PO SCH (21:00)
== END 2018-04-01 21:45 | disposition left against medical advice (07) | DRG 157 ==
LOC: NEPC 22:05 → NEDA 03-31 02:16 → OBSVTOIN 03-31 11:06 → N05B 03-31 15:39
PROVIDERS: ADMIT Hospitalist; ATTEND Hospitalist
PROC: 0RSCXZZ Reposition Right Temporomandibular Joint, External Approach (ICD-10-PCS; 2018-03-31)
PROC: 0RSDXZZ Reposition Left Temporomandibular Joint, External Approach (ICD-10-PCS; principal; 2018-03-31 09:40)
DX: S03.03XA Dislocation of jaw, bilateral, initial encounter (principal); G92 Toxic encephalopathy; F10.129 Alcohol abuse with intoxication, unspecified; F17.210 Nicotine dependence, cigarettes, uncomplicated; F12.90 Cannabis use, unspecified, uncomplicated; W19.XXXA Unspecified fall, initial encounter; D72.829 Elevated white blood cell count, unspecified; R56.9 Unspecified convulsions
CPT/HCPCS: 70450; 70486; 71045; 72125; 72170; 80048; 80053; 80307; 81001; 82550; 82552; 83690; 83735; 84484; 85025; 85610; 85730; 87086; 90715; 93005; 95819; J0131; J0330; J0690; J2060; J2250; J3010; J7030